=== PATIENT | male | born 1940 | race Two or more races ===

== ENCOUNTER 2017-03-23 02:50 | Emergency (ER) | payer BC, MEDICARE ==
--- NOTE | 2017-03-23 03:07 | Emergency Department Record ---
History of Present Illness - General Chief complaint: Bite Insect/other Stated complaint: INSECT BITE Source: Patient Mode of Arrival: Ambulatory Limitations: No limitations - History of Present Illness Initial comments: 76 yo male presents to ED for possible insect bite to the back. Patient reports that he was in the [place] yesterday afternoon, reported that he awoke this morning with pain to the back and a lesion that was "squeezed" from the back leaving a "large hole". Patient and his are wondering if the residue removed could be a tick. Patient denies redness, fevers, or itching symptoms. MD complaint: Lesion Onset/Timin -: Minutes(s) Hx Tetanus Toxoid Vaccination: Yes Year of Tetanus Vaccination: 2006 Patient Tetanus UTD (within 5 yrs): No Location: Back Severity: Mild Consistency: Now resolved Improves with: None Worsens with: None Context: None Associated symptoms: Denies other symptoms Treatments Prior to Arrival: Other Treatment Prior to Arrival Comment:: hydrogen peroxide - Related Data Home Medications Medication Instructions Recorded Confirmed Last Taken Aspirin [Aspirin EC] 81 mg PO DAILY 12/09/14 12/09/14 Unknown Budesonide/Formoterol Fumarate 2 puff IH BID 12/09/14 12/09/14 Unknown [Symbicort 160-4.5 Mcg Inhaler] Cholecalciferol (Vitamin D3) 1,000 unit PO DAILY 12/09/14 12/09/14 Unknown [Vitamin D3] Clopidogrel Bisulfate [Plavix] 75 mg PO DAILY 12/09/14 12/09/14 Unknown Dicyclomine HCl [Bentyl] 20 mg PO TID 12/09/14 12/09/14 Unknown Dutasteride [Avodart] 0.5 mg PO BID 12/09/14 12/09/14 Unknown Esomeprazole Magnesium [Nexium] 40 mg PO DAILY 12/09/14 12/09/14 Unknown Eszopiclone [Lunesta] 3 mg PO QHS 12/09/14 12/09/14 Unknown Ezetimibe/Simvastatin [Vytorin 1 each PO QPM 12/09/14 12/09/14 Unknown 10-40 mg Tablet] Flaxseed Oil [Flax Seed Oil] 1,000 mg PO DAILY 12/09/14 12/09/14 Unknown Ipratropium/Albuterol Sulfate 4 gm IH BID 12/09/14 12/09/14 Unknown [Combivent Respimat Inhal [place]] Isosorbide Mononitrate [Imdur] 30 mg PO DAILY 12/09/14 12/09/14 Unknown Levothyroxine Sodium [Synthroid] 125 mcg PO DAILY 12/09/14 12/09/14 Unknown Magnesium 250 mg PO DAILY 12/09/14 12/09/14 Unknown Metoprolol Succinate [Toprol Xl] 100 mg PO DAILY 12/09/14 12/09/14 Unknown Montelukast Sodium [Singulair] 10 mg PO QHS 12/09/14 12/09/14 Unknown Multivitamin [Multi-Vitamin Daily] 1 each PO DAILY 12/09/14 12/09/14 Unknown Nitroglycerin [Nitrostat] 0.4 mg SL Q5MIN PRN 12/09/14 12/09/14 Unknown Pyridoxine HCl [Vitamin B-6] 1 tab PO DAILY 12/09/14 12/09/14 Unknown Ramipril [Altace] 2.5 mg PO DAILY 12/09/14 12/09/14 Unknown Ubidecarenone [Co Q-10] 400 mg PO DAILY 12/09/14 12/09/14 Unknown Vitamin B Complex [Balanced B-100] 1 each PO DAILY 12/09/14 12/09/14 Unknown Allergies Allergy/AdvReac Type Severity Reaction Status Date / Time hydromorphone HCl Allergy hallucinati Verified 12/09/14 06:03 [From Dilaudid] ons Travel Screening - Travel/Exposure Within Last 30 Days Have you traveled within the last 30 days?: No - Travel Symptoms Symptom Screening: None Review of Systems Constitutional: Denies: Chills, Fever, Malaise, Night sweats Eyes: Denies: Eye discharge, Eye pain ENT: Denies: Congestion, Ear pain, Epistaxis Respiratory: Denies: Cough, Dyspnea Cardiovascular: Denies: Chest pain, Dyspnea on exertion Endocrine: Denies: Fatigue, Heat or cold intolerance Gastrointestinal: Denies: Abdominal pain, Nausea, Vomiting Genitourinary: Denies: Incontinence, Retention Musculoskeletal: Denies: Arthralgia, Back pain, Gout, Joint swelling Skin: Reports: Lesions. Denies: Bruising, Change in color, Change in hair/nails Neurological: Denies: Abnormal gait, Confusion, Headache, Seizure Psychiatric: Denies: Anxiety Hematological/Lymphatic: Denies: Anemia, Blood Clots Past Medical History - SOCIAL HISTORY Smoking Status: Former smoker Alcohol Use: None Drug Use: None - RESPIRATORY Hx Respiratory Disorders: Yes Hx Asthma: Yes (good control) Hx Bronchitis: Yes Hx Sleep Apnea: Yes Hx of CPAP: No - CARDIOVASCULAR Hx Cardio Disorders: Yes Hx Abnormal EKG: Yes Hx Cardiac Cath: Yes (01/2017) Hx Chest Pain: Yes (no use since 12/09) Hx CHF: (?) Hx Edema: Yes (occass mild) Hx Heart Attack: Yes (x2 1986 and 1991) Hx Coronary Artery Disease: Yes 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) Hx Coronary Stent: Yes (2001 and 2002) - NEURO Hx Neuro Disorders: No - GI Hx GI Disorders: Yes Hx Abdominal Pain: Yes (hernia) Hx Reflux: Yes Hx Hiatal Hernia: Yes Hx Irritable Bowel: Yes - Hx Genitourinary Disorders: Yes Hx Prostate Problems: Yes (enlarged) - ENDOCRINE Hx Endocrine Disorders: Yes Hx Thyroid Disease: Yes - MUSCULOSKELETAL Hx Musculoskeletal Disorders: Yes Hx Arthritis: Yes - PSYCH Hx Psych Problems: No - HEMATOLOGY/ONCOLOGY Hx Hematology/Oncology Disorders: Yes Hx Bruising: Yes (on plavix) Family Medical History Any Significant Family History?: Yes Hx Heart Disease: Brother/Sister Hx Stroke: Father Physical Exam - General General Appearance: Alert, Oriented x3, Cooperative, No acute distress Limitations: No limitations - Head Head exam: Atraumatic, Normocephalic, Normal inspection Head exam detail: negative: Abrasion, Contusion, Arriaga's sign, General tenderness, Hematoma, Laceration - Eye Eye exam: Normal appearance. negative: Conjunctival injection, Periorbital swelling, Periorbital tenderness, Scleral icterus - ENT Ear exam: negative: Auricular hematoma, Auricular trauma Nasal Exam: negative: Active bleeding, Discharge, Dried blood, Foreign body Mouth exam: negative: Drooling, Laceration, Muffled voice, Tongue elevation - Neck Neck exam: Normal inspection. negative: Meningismus, Tenderness - Respiratory Respiratory exam: Normal lung sounds bilaterally. negative: Rales, Respiratory distress, Rhonchi, Stridor - Cardiovascular Cardiovascular Exam: Regular rate, Normal rhythm, Normal heart sounds - GI/Abdominal GI/Abdominal exam: Soft. negative: Rebound, Rigid, Tenderness - Rectal Rectal exam: Deferred - exam: Deferred - Extremities Extremities exam: Normal inspection. negative: Calf tenderness, Pedal edema, Tenderness - Back Back exam: Reports: Other (small 0.2 cm lesion c/w previous ingrown hair/pimple with removed residue brought to ED for evaluation. ). Denies: CVA tenderness ( R), CVA tenderness (L), Rash noted, Tenderness - Neurological Neurological exam: Alert, Normal gait, Oriented X3 - Psychiatric Psychiatric exam: Normal affect, Normal mood - Skin Skin exam: negative: Abrasion Type of lesion: negative: abrasion Course Vital Signs 03/23/17 02:56 Temperature 97.9 F Pulse Rate 60 Respiratory 20 Rate Blood Pressure 146/76 Pulse Ox 94 L - Reevaluation(s) Reevaluation #1: 03/23/17 03:11 Residue brought to ED for evaluation is not an insect but small residue removed from a pimple to the patient's left mid-back. There is no erythema on examination or evidence to suggest insect bite. Patient appears stable for discharge at this time. 03/23/17 03:16 Disposition Disposition: Discharge Clinical Impression: Pimples Disposition: Home, Self-Care Condition: (2) Stable Instructions: Acne (ED) Additional Instructions: Return to ED if your symptoms worsen or if you have any concerns. Follow-up with your family doctor in 1 week as directed. Forms: Patient Portal Access Time of Disposition: 03:07
== END 2017-03-23 03:14 | disposition home or self-care (01) ==
LOC: ER 02:50
DX: R23.8 Other skin changes (principal)
CPT/HCPCS: 99282